=== PATIENT | male | born 1995 | race Caucasian/White ===

== ENCOUNTER 2023-03-09 20:34 | Emergency (ER) | payer OTHER ==
[~2023-03-09] VITALS: Ht 170.2 cm; Wt 84.1 kg
[2023-03-09 20:40] VITALS: BP 147/90; TEMP 97.2
[2023-03-10 02:09] VITALS: PULSE 64
== END 2023-03-10 02:10 | disposition home or self-care (01) ==
LOC: COL.ER 20:34
DX: S63.501A Unspecified sprain of right wrist, initial encounter (principal); X50.1XXA Overexertion from prolonged static or awkward postures, initial encounter; Y93.89 Activity, other specified; Y99.0 Civilian activity done for income or pay